=== PATIENT | male | born 1945 | race African-American/Black ===

== ENCOUNTER 2016-12-18 15:28 | Observation (INO) | payer OTHER ==
[~2016-12-18] VITALS: Ht 167.6 cm; Wt 99.8 kg
[2016-12-18 15:43] VITALS: BP 160/95
[2016-12-18 16:19] LABS: Basophils # (auto) 0 uL; DEFINITIVE VIEW TRANSMISSION; Eosinophils # (auto) 0.1 uL; Hemoglobin 11.3 g/dL (13.5-17.5); Lymphocytes # (auto) 1.1 uL; Monocytes # (auto) 0.7 uL; Neutrophils # (auto) 5.2 uL; Platelet Count (auto) 333 10^3/uL (140-450); White Blood Cell 7.1 10^3/uL (4.4-10.8)
[2016-12-18 16:24] LABS: Basophils % (auto) 0.2 % (0.0-2.0); Eosinophils % (auto) 1.4 % (0.0-7.0); Hematocrit 35.6 % (41.0-53.0); Lymphocytes % (auto) 15.8 % (10.0-50.0); Mean Corpuscular Hemoglobin 25.5 pg (28.0-32.0); Mean Corpuscular Hgb Conc. 31.7 g/dL (32.0-36.0); Mean Corpuscular Volume 80.4 fL (80.0-100.0); Mean Platelet Volume 8.7 fL (7.4-10.4); Monocytes % (auto) 9.4 % (0.0-12.0); Neutrophils % (auto) 73.2 % (37.0-80.0); Red Cell Distribution Width 19.8 % (11.6-16.0)
[2016-12-18 16:36] LABS: INR 0.93 (0.9-1.15); Partial Thromboplastin Time 26.8 sec (22.64-33.71)
[2016-12-18 16:38] LABS: Albumin 3.5 g/dL (3.4-5.0); BUN/Creatinine Ratio 18.2; Calcium 8.4 mg/dL (8.5-10.1); Potassium 4.3 mmol/L (3.5-5.1)
[2016-12-18 16:41] LABS: Bilirubin, Total 0.2 mg/dL (0.2-1.0); Total Protein 7.4 g/dL (6.4-8.2)
[2016-12-18 17:56] LABS: Anisocytosis Slight; Hypochromia Slight; Ovalocytes FEW; Platelet Estimate Adequate
== END 2016-12-18 17:45 | disposition left against medical advice (07) | DRG 204 ==
LOC: ER 15:29 → OVERFLOW 15:47 → ER 17:45
PROVIDERS: ADMIT Emergency Medicine; ATTEND Emergency Medicine
DX: R05 Cough (principal); I10 Essential (primary) hypertension; J45.909 Unspecified asthma, uncomplicated; R06.02 Shortness of breath; R10.2 Pelvic and perineal pain; N50.819 Testicular pain, unspecified
CPT/HCPCS: 36415; 71020; 80053; 85025; 85610; 85730; 93005; 99281; G0378

== ENCOUNTER 2022-02-19 10:35 | Emergency (ER) | payer OTHER ==
[~2022-02-19] VITALS: Ht 167.6 cm; Wt 99.8 kg
[2022-02-19 12:01] VITALS: BP 114/64
[2022-02-19] MEDS ORDERED: methylPREDNISolone SOD SUCC 125 MG/2 ML VL IM ONE (12:15)
[2022-02-19] MEDS ORDERED: LORATADINE 10 MG TAB PO ONE (12:15)
== END 2022-02-19 12:34 | disposition home or self-care (01) ==
LOC: ER 10:35
DX: L25.9 Unspecified contact dermatitis, unspecified cause (principal); I10 Essential (primary) hypertension
CPT/HCPCS: 96372; 99283; J2930

== ENCOUNTER 2023-03-30 08:59 | Emergency (ER) | payer OTHER ==
[~2023-03-30] VITALS: Ht 165.1 cm; Wt 85.4 kg
[2023-03-30 09:05] VITALS: BP 155/74; PULSE 62; RESP 18
[2023-03-30 10:11] VITALS: O2SAT 98
== END 2023-03-30 10:46 | disposition home or self-care (01) ==
LOC: ER 08:59
DX: S39.012A Strain of muscle, fascia and tendon of lower back, initial encounter (principal); M51.36 Other intervertebral disc degeneration, lumbar region; I10 Essential (primary) hypertension; Z88.6 Allergy status to analgesic agent; Z98.890 Other specified postprocedural states; W18.39XA Other fall on same level, initial encounter; Y93.89 Activity, other specified; Y92.89 Other specified places as the place of occurrence of the external cause; Y99.8 Other external cause status
CPT/HCPCS: 72100; 72220